=== PATIENT | female | born 1965 | race Caucasian/White ===

== ENCOUNTER 2019-08-19 05:25 | Emergency (ER) | payer OTHER ==
[~2019-08-19] VITALS: Ht 167.6 cm; Wt 86.2 kg
[2019-08-19 05:30] VITALS: BP 129/81
--- NOTE | 2019-08-19 06:44 | NUR ---
REPORT TO MIROSLAVA WELLS AND [facility]
--- NOTE | 2019-08-19 06:47 | NUR ---
REPORT RECEIVED FROM [facility].
--- NOTE | 2019-08-19 07:40 | NUR ---
PATIENT RESTING ON GURNEY AWAITING LAB RESULTS. DENIES FURTHER NEEDS AT THIS TIME.
--- NOTE | 2019-08-19 08:06 | NUR ---
Patient given discharge instructions and they have confirmed that they understand the instructions. Patient ambulatory with steady gait.
== END 2019-08-19 08:07 | disposition home or self-care (01) ==
LOC: ED 05:48
DX: Z77.21 Contact with and (suspected) exposure to potentially hazardous body fluids (principal); W46.0XXA Contact with hypodermic needle, initial encounter; Y93.89 Activity, other specified; Y92.89 Other specified places as the place of occurrence of the external cause; Y99.8 Other external cause status
CPT/HCPCS: 36415; 86705; 86706; 86803; 87340; 87806; 99283; G0475

== ENCOUNTER 2019-08-21 11:17 | Emergency (ER) | payer BC, OTHER ==
[~2019-08-21] VITALS: Ht 167.6 cm; Wt 85.2 kg
[2019-08-21] MEDS ORDERED: SODIUM CHLORIDE FLUSH 10ML SYR IVF ONE ×2 (11:30→12:00)
--- NOTE | 2019-08-21 11:31 | NUR ---
PT AMBULATORY TO RESTROOM WITH STEADY GAIT AND NO STAFF ASSISTANCE FOR ATTEMPT AT URINE SAMPLE.
--- NOTE | 2019-08-21 11:58 | NUR ---
PT HERE WITH C/O LLQ ABDOMINAL PAIN X 3 DAYS. PT STATES NO NAUSEA/VOMITTING/FEVER/CHILLS/DIARRHEA/URINARY SYMPTOMS. PT TENDER TO PALAPATION ON LLQ ABDOMEN. PT DRESSED IN GOWN, ATTACHED TO MONITOR, NAD, ROOM AIR, CALL LIGHT WITHIN REACH. SON AT BEDSIDE. SIDERAIL X [address] PIV ESTABLISHED BY THIS RN AND LABS DRAWN. UA WALKED TO LAB.
[2019-08-21] MEDS ORDERED: HYDROmorphone 2 MG/ML, 1ML IVPush PRN (12:00)
[2019-08-21] MEDS ORDERED: ONDANSETRON 2MG/ML, 2ML IVPush ONE (12:00)
[2019-08-21] MEDS ORDERED: ONDANSETRON 2MG/ML, 2ML ONE (12:02)
[2019-08-21] MEDS ORDERED: HYDROmorphone 1 MG/ML, 1ML INJ ONE (12:02)
--- NOTE | 2019-08-21 12:07 | NUR ---
PT MEDICATED PER ORDERS.
[2019-08-21 12:19] LABS: BASOPHILS # (AUTO) 0.04 x10^3/uL (0-0.1); BASOPHILS % (AUTO) 1 % (0-1); EOSINOPHILS % (AUTO) 2 % (1-7); LYMPHOCYTES # (AUTO) 1.47 x10^3/uL (1-3.4); LYMPHOCYTES % (AUTO) 28 % (22-44); MD NO; MEAN CORPUSCULAR HEMOGLOBIN 31.3 pg (27.0-34.8); MEAN CORPUSCULAR HGB CONC 33.4 g/dL (32.4-35.8); MEAN CORPUSCULAR VOLUME 93.8 fL (80-100); MEAN PLATELET VOLUME 9.1 fL (7.4-10.4); MONOCYTES # (AUTO) 0.46 x10^3/uL (0.2-0.8); MONOCYTES % (AUTO) 9 % (2-9); NEUTROPHILS # (AUTO) 3.09 x10^3/uL (1.8-6.8); NEUTROPHILS % (AUTO) 60 % (42-75); PLATELET COUNT 260 x10^3/uL (130-400); RED BLOOD COUNT 4.35 x10^6/uL (3.82-5.3); RED CELL DISTRIBUTION WIDTH 12.9 % (9.6-15.2)
[2019-08-21 12:24] LABS: MICROSCOPIC NOT IND
[2019-08-21 12:31] LABS: ALANINE AMINOTRANSFERASE 35 U/L (12-78); ALBUMIN 3.7 g/dL (3.4-5.0); ANION GAP 6 mmol/L (5-15); CALCIUM 8.6 mg/dL (8.5-10.1); CHLORIDE 111 mmol/L (98-107); CREATININE 1.18 mg/dL (0.55-1.02); CULTURE INDICATED? NO
[2019-08-21 12:33] LABS: ALKALINE PHOSPHATASE 90 U/L (45-117); BILIRUBIN,TOTAL 0.4 mg/dL (0.2-1.0); TOTAL PROTEIN 7.2 g/dL (6.4-8.2)
--- NOTE | 2019-08-21 12:45 | NUR ---
PT TO CT.
[2019-08-21] MEDS ORDERED: OMNIPAQUE 350 MG/ML, 100ML BOTTLE ONE (12:59)
--- NOTE | 2019-08-21 13:04 | NUR ---
PT BACK FROM CT.
--- NOTE | 2019-08-21 13:13 | NUR ---
BEDSIDE REPORT GIVEN TO RUSSELL HUMPHREY. CARE TRANSFERRED.
--- NOTE | 2019-08-21 13:17 | NUR ---
BEDSIDE REPORT RECEIVED FROM RUSSELL MESA. ASSUMING CARE AT THIS TIME. PT RESTING IN ROOM. VSS. NO NEEDS EXPRESSED.
--- NOTE | 2019-08-21 13:22 | NUR ---
ALL RESULTS BACK AT THIS TIME. CHART UP FOR RECHECK.
[2019-08-21 14:00] VITALS: BP 121/75
--- NOTE | 2019-08-21 14:01 | NUR ---
PT RESTING IN ROOM WITH FAMILY AT BS. VSS. PT REPORTS DECREASE IN PAIN. NO NEEDS EXPRESSED. CALL LIGHT WITHIN REACH. CHART UP FOR RECHECK.
== END 2019-08-21 14:50 | disposition home or self-care (01) ==
LOC: ED 13:05
DX: D39.11 Neoplasm of uncertain behavior of right ovary (principal); R10.32 Left lower quadrant pain
CPT/HCPCS: 36415; 74177; 80053; 81003; 85025; 93005; 96374; 96375; 99284; J1170; J2405; Q9967